=== PATIENT | male | born 1975 | race Caucasian/White ===

== ENCOUNTER 2016-10-09 14:46 | Emergency (ER) | payer BC ==
--- NOTE | 2016-10-09 15:14 | Emergency Department Record ---
History of Present Illness - General Chief complaint: Facial Swelling Stated complaint: POSS BROKEN NOSE Time Seen by Provider: 10/09/16 15:04 Source: Patient Mode of Arrival: Ambulatory - History of Present Illness Initial Comments: The patient injured his nose accidentally 5 days ago. He came to [facility], got an xray, but didn't know what the report said. Yesterday his nose bergan hurting more, so he returned to find out exactly what is wrong. Onset/Timin -: Week(s) Exposure: Other Severity: Moderate Previous Allergy History: Other - Related Data Home Medications Medication Instructions Recorded Confirmed Last Taken Amlodipine Besylate 5 mg PO DAILY 30 Days 10/08/16 10/09/16 Unknown Atenolol 50 mg PO DAILY 30 Days 10/08/16 10/09/16 Unknown Hydromorphone HCl 4 mg PO ASDIR 7 Days 10/08/16 10/09/16 Unknown Metformin HCl 500 mg PO DAILY 30 Days 10/08/16 10/09/16 Unknown Tizanidine HCl 4 mg PO ASDIR 30 Days 10/08/16 10/09/16 Unknown Allergies Allergy/AdvReac Type Severity Reaction Status Date / Time dicyclomine HCl [From BENTYL] Allergy Intermediate ITCHING Verified 10/09/16 14: 59 Travel Screening - Travel/Exposure Within Last 30 Days Have you traveled within the last 30 days?: No Review of Systems Reviewed: No additional complaints except as noted below Constitutional: Reports: As per HPI. Denies: Chills, Fever, Malaise, Night sweats, Weakness, Weight change Eyes: Reports: As per HPI. Denies: Eye discharge, Eye pain, Photophobia, Vision change ENT: Reports: As per HPI. Denies: Congestion, Dental pain, Ear pain, Epistaxis , Hearing loss, Throat pain Respiratory: Reports: As per HPI. Denies: Cough, Dyspnea, Hemoptysis, Stridor, Wheezes Cardiovascular: Reports: As per HPI. Denies: Arrhythmia, Chest pain, Dyspnea on exertion, Edema, Murmurs, Orthopnea, Palpitations, Paroxysmal nocturnal dyspnea, Rheumatic Fever, Syncope Endocrine: Reports: As per HPI. Denies: Fatigue, Heat or cold intolerance, Polydipsia, Polyuria Gastrointestinal: Reports: As per HPI. Denies: Abdominal pain, Constipation, Diarrhea, Hematemesis, Hematochezia, Melena, Nausea, Vomiting Genitourinary: Reports: As per HPI. Denies: Dysuria, Frequency, Hematuria, Incontinence, Retention, Testicular pain, Testicular mass, Urgency Musculoskeletal: Reports: As per HPI. Denies: Arthralgia, Back pain, Gout, Joint swelling, Myalgia, Neck pain Skin: Reports: As per HPI. Denies: Bruising, Change in color, Change in hair/ nails, Lesions, Pruritus, Rash Neurological: Reports: As per HPI. Denies: Abnormal gait, Confusion, Headache, Numbness, Paresthesias, Seizure, Tingling, Tremors, Vertigo, Weakness Psychiatric: Reports: As per HPI. Denies: Anxiety, Auditory hallucinations, Depression, Homicidal thoughts, Suicidal thoughts, Visual hallucinations Hematological/Lymphatic: Reports: As per HPI. Denies: Anemia, Blood Clots, Easy bleeding, Easy bruising, Swollen glands Past Medical History - SOCIAL HISTORY Smoking Status: Never smoker Alcohol Use: None Drug Use: None - RESPIRATORY Hx Respiratory Disorders: No - CARDIOVASCULAR Hx Cardio Disorders: Yes Hx Hypertension: Yes - NEURO Hx Neuro Disorders: Yes Hx Headaches: Yes - GI Hx GI Disorders: No - Hx Genitourinary Disorders: No - ENDOCRINE Hx Endocrine Disorders: No - MUSCULOSKELETAL Hx Musculoskeletal Disorders: Yes Comment:: Neuropathy - PSYCH Hx Psych Problems: Yes Hx Depression: Yes - HEMATOLOGY/ONCOLOGY Hx Hematology/Oncology Disorders: No Family Medical History Any Significant Family History?: No Physical Exam - General General Appearance: Alert, Oriented x3, Cooperative, No acute distress - Head Head exam: Normal inspection - Eye Eye exam: Normal appearance, PERRL Pupils: Normal accommodation - ENT ENT exam: Normal exam, Mucous membranes moist, Normal external ear exam, Normal orophraynx, TM's normal bilaterally Ear exam: Normal external inspection. negative: External canal tenderness Nasal Exam: Normal inspection, Other (scant amount of swelling in right nares, nares patent). negative: Active bleeding, Discharge, Dried blood, Foreign body , Sinus tenderness Mouth exam: Normal external inspection, Tongue normal Teeth exam: Normal inspection. negative: Dental caries Throat exam: Normal inspection. negative: Tonsillar erythema, Tonsillar exudate - Neck Neck exam: Normal inspection, Full ROM. negative: Lymphadenopathy, Meningismus , Tenderness - Respiratory Respiratory exam: Normal lung sounds bilaterally. negative: Respiratory distress - Cardiovascular Cardiovascular Exam: Regular rate, Normal rhythm, Normal heart sounds - GI/Abdominal GI/Abdominal exam: Soft. negative: Tenderness - Rectal Rectal exam: Deferred - exam: Deferred - Extremities Extremities exam: Normal inspection, Full ROM, Normal capillary refill. negative: Tenderness - Back Back exam: Reports: Normal inspection, Full ROM. Denies: Muscle spasm, Rash noted, Tenderness - Neurological Neurological exam: Alert, Normal gait, Oriented X3, Reflexes normal - Psychiatric Psychiatric exam: Normal affect, Normal mood - Skin Skin exam: Dry, Intact, Normal color, Warm Course Vital Signs 10/09/16 14:56 Temperature 98.2 F Pulse Rate 62 Respiratory 20 Rate Blood Pressure 152/91 Pulse Ox 97 Medical Decision Making - Management Options MDM Management: No Additional Work-up Planned Disposition Disposition: Discharge Clinical Impression: Nasal contusion Qualifiers: Encounter type: initial encounter Qualified Code(s): S00.33XA - Contusion of nose, initial encounter Disposition: Home, Self-Care Condition: (1) Good Additional Instructions: After nose is completely healed and nontender, you may follow with your PCP IF you are unable to breathe normally through the right side of your nose. Tylenol or ibuprofen as directed as needed for pain. Forms: Patient Portal Access Quality - Quality Measures Quality Measures: N/A - Blood Pressure Screening Blood Pressure Classification: Hypertensive Reading Systolic Measurement: 152 Diastolic Measurement: 91 Screening for High Blood Pressure: Not Eligible for Measure [[id number]] Not Eligible Reason: Active Diagnosis of Hypertension
== END 2016-10-09 15:38 | disposition home or self-care (01) ==
LOC: ER 14:46
DX: S00.33XA Contusion of nose, initial encounter (principal); W51.XXXA Accidental striking against or bumped into by another person, initial encounter
CPT/HCPCS: 99282